=== PATIENT | female | born 1960 | race Caucasian/White ===

== ENCOUNTER 2019-03-05 16:49 | Emergency (ER) | payer BC ==
[2019-03-05] MEDS ORDERED: OXYCODONE-ACETAMINOPHEN 5-325 MG TABLET PO ONE (17:27)
[2019-03-05] MEDS ORDERED: IBUPROFEN 800 MG TABLET PO ONE (17:27)
[2019-03-05] MEDS ORDERED: AMOXICILLIN TR/POT CLAVULANATE 500-125 MG TAB PO ONE (17:27)
[2019-03-05] MEDS ORDERED: DIPH/PERTUSS(ACELL)/TETANUS VAC/PF 0.5 ML SYR (>=10YO) IM ONE (17:28)
--- NOTE | 2019-03-05 17:33 | ER Document Report ---
ED General - General Chief Complaint: Dog Bite Stated Complaint: DOG BITE Time Seen by Provider: 03/05/19 17:23 Mode of Arrival: Ambulatory Information source: Patient TRAVEL OUTSIDE OF THE [place] IN LAST 30 DAYS: No - HPI Patient complains to provider of: Right forearm injury from dog bite Onset: Just prior to arrival Onset/Duration: Sudden Quality of pain: Sharp Severity: Severe Pain Level: 5 Context: Bit by daughters vaccinated dog Associated symptoms: None Exacerbated by: Denies Relieved by: Denies Similar symptoms previously: No Recently seen / treated by doctor: No Notes: 59-year-old female coming in today with lacerations to her right forearm. She try to break up a fight between 2 of her daughter's dogs. She ended up with some skin avulsion a 3 cm laceration a 1-1/2 cm laceration and a puncture wound. No active bleeding last tetanus is unknown - Related Data Allergies/Adverse Reactions: No Known Allergies Allergy (Unverified 03/05/19 16:54) Past Medical History - General Information source: Patient - Social History Smoking Status: Smoker,Current Status Unk Family History: Reviewed & Not Pertinent Review of Systems - Review of Systems Notes: Constitutional: No fevers. No chills. EENT: No eye redness. No eye pain. No ear pain. No sore throat. Cardiovascular: No chest pain. No palpitations. Respiratory: No cough. No shortness of breath. No respiratory distress. Gastrointestinal: No abdominal pain. No nausea, vomiting, or diarrhea. Genitourinary: Atraumatic. No lesions. No pain. No discharge. Musculoskeletal: Right forearm pain, right forearm lacerations Skin: No rash or lesions. Lymphatic: No swollen lymph nodes. Neurologic: No headache. No syncope. Psychiatric: No suicidal or homicidal ideation. Physical Exam - Vital signs Vitals: Temp Pulse Resp BP Pulse Ox 98.1 F 88 16 197/88 H 98 03/05/19 16:53 03/05/19 16:53 03/05/19 16:53 03/05/19 16:53 03/05/19 16:53 - Notes Notes: General: Well-developed, well-nourished. In no acute distress. Non-toxic appearing. Cardiac: Well-perfused. Regular rate and rhythm. No murmurs, rubs, or gallops. Pulmonary: No respiratory distress. No cyanosis. Bilateral lung fiels are clear to auscultation. Abdominal: Non-distended. Non-rigid. Bowels sounds are present in all four karmen drants. No guarding or rebound. HEENT: Head is atraumatic. Conjunctivae not reddened. No tearing. PERRL. EOMI. Orbits atraumatic. No periorbital swelling or erythema. Oropharynx is without erythema, swelling, or exudates. Neck: Supple. No adenopathy. No meningismus. Dermatologic: Warm with good turgor. No rash. Atraumatic. Chest: Atraumatic. No chest wall tenderness to palpation. Musculoskeletal: Right forearm examined. There is some epidermal skin avulsions from the mid volar forearm toward the wrist. There is a 4 cm laceration into subcutaneous tissue on the medial aspect of the right distal forearm. There is a 2 cm laceration into the subcutaneous tissue adjacent to the wrist. There is no bleeding. There is a 1 centimeter puncture wound beneath the laceration described above. Full range of motion. Distal neurovascular exam is intact. Genitourinary: Examination deferred Neurologic: No gross neurologic deficits. Psychiatric: Normal mood. Course - Re-evaluation Re-evalutation: 03/05/19 17:33 Augmentin given. Tdap ordered. X-ray ordered. Patient will need local anesthesia with loose approximation of the laceration - Vital Signs Vital signs: Temp Pulse Resp BP Pulse Ox 98.1 F 88 16 197/88 H 98 03/05/19 16:53 03/05/19 16:53 03/05/19 16:53 03/05/19 16:53 03/05/19 16:53 Procedures - Laceration/Wound Repair right forearm 4cm Time completed: 19:54 Wound length (cm): 4 Wound's Depth, Shape: Linear, Contused tissue Laceration pre-procedure: Sterile PPE donned, Sterile drapes applied, Shur-Clens applied Anesthetic type: 1% Lidocaine Volume Anesthetic (mLs): 10 Wound explored: Clean, No foreign body removed Wound Debrided: Minimal Wound Repaired With: Sutures Suture Size/Type: 4:0 Number of Sutures: 5 Layer Closure?: No Post-procedure wound care: Sterile dressing applied Post-procedure NV exam normal: Yes Complications: No Notes: 03/05/19 19:56 Please note that the wound was loosely approximated and not sutured tightly to prevent increased risk of infection right forearm 2 cm Time completed: 19:55 Wound length (cm): 2 Wound's Depth, Shape: Linear Laceration pre-procedure: Sterile PPE donned, Sterile drapes applied, Shur-Clens applied Anesthetic type: 1% Lidocaine Volume Anesthetic (mLs): 3 Wound explored: Clean, No foreign body removed Wound Repaired With: Sutures Suture Size/Type: 4:0 Number of Sutures: 2 Layer Closure?: No Post-procedure wound care: Sterile dressing applied Post-procedure NV exam normal: Yes Complications: No Notes: 03/05/19 19:56 Please note the wound was loosely approximated and not closed tightly secondary to risk of infection Discharge - Discharge Clinical Impression: Dog bite Qualifiers: Encounter type: initial encounter Qualified Code(s): W54.0XXA - Bitten by dog, initial encounter Forearm laceration Qualifiers: Encounter type: initial encounter Laterality: right Qualified Code(s): S51.811A - Laceration without foreign body of right forearm, initial encounter Condition: Good Disposition: HOME, SELF-CARE Instructions: Antibiotic Ointment Protection ([facility]), Laceration Care ([facility]), Prophylactic Antibiotic ([facility]), Oral Narcotic Medication ([facility]), Soap Cleansing ([facility]), Tetanus Immunization Given ([facility]) Additional Instructions: Wound recheck by in 2 days. Sutures can come out in 10 days. Take all antibiotics as directed. Simple soap and water cleansing. Plus or minus Neosporin or bacitracin and nonstick dressing daily. Prescriptions: Amox Tr/Potassium Clavulanate [Augmentin 875-125 Tablet] 1 tab PO BID 7 Days #14 tablet Referrals: primary care doctor, your [Other] - Follow up as needed
--- NOTE | 2019-03-05 17:56 | RADIOLOGY REPORT (SQ) ---
EXAM DESCRIPTION: FOREARM RIGHT COMPLETED DATE/TIME: 03/05/2019 5:48 pm REASON FOR STUDY: dog bite r/o fx fb COMPARISON: None. NUMBER OF VIEWS: Two views. TECHNIQUE: Two radiographic images acquired of the right forearm, including elbow and wrist in at le ast one projection. LIMITATIONS: None. FINDINGS: MINERALIZATION: Normal. BONES: No acute fracture. No worrisome bone lesions. SOFT TISSUES: No obvious swelling or foreign body. OTHER: No other significant finding. IMPRESSION: NEGATIVE STUDY OF THE RIGHT FOREARM. NO RADIOGRAPHIC EVIDENCE OF ACUTE INJURY. TECHNICAL DOCUMENTATION: JOB ID: [id number] [employer]- All Rights Reserved Reading location - IP/workstation name: [email or web address]
[2019-03-05] MEDS ORDERED: LIDOCAINE 1% INJ-PF (10 MG/ML) 30 ML SDV INJ ONE (18:40)
[2019-03-05] MEDS ORDERED: LIDOCAINE 1.5% INJ-MPF (15 MG/ML) 20 ML AMPUL INJ ONE (18:41)
[2019-03-05] MEDS ORDERED: HYDROCODONE/ACETAMINOPHEN 5-325 MG (6 TAB/ER DISP) PO PRN (19:57)
[2019-03-05 20:30] VITALS: BP 154/69
== END 2019-03-05 20:31 | disposition home or self-care (01) ==
LOC: ER 16:49
DX: S51.851A Open bite of right forearm, initial encounter (principal); W54.0XXA Bitten by dog, initial encounter; Y93.K9 Activity, other involving animal care; Z23 Encounter for immunization
CPT/HCPCS: 90471; 90715; 99283